=== PATIENT | male | born 1980 | race Hispanic/Latino ===

== ENCOUNTER 2025-06-12 06:05 | Observation (INO) | payer OTHER ==
[2025-06-08 14:56] LABS: IMMATURE GRANULOCYTE ABSOLUTE 0.04 K/uL (0-1); NUCLEATED RED BLOOD CELLS 0.0 % (0.0-0.19); PLATELET COUNT (AUTO) 320 K/uL (130-400); RED BLOOD CELL COUNT(AUTO) 5.54 MIL/uL (4.50-6.20); RED CELL DISTRIBUTION WIDTH 13.8 % (11.0-15.5); WHITE BLOOD COUNT (AUTO) 12.3 K/uL (4.8-10.8)
[2025-06-08 15:06] LABS: CREATININE 1.1 mg/dL (0.5-1.3); GLOMERULAR FILTR. RATE CALC 85.0 mL/min (>90); GLUCOSE,RANDOM 104.0 mg/dL (70-105); SODIUM SERUM 138.0 mmol/L (136-145); UREA NITROGEN, BLOOD 19.0 mg/dL (7-18)
[2025-06-08 15:08] LABS: INR 0.97 (0.85-1.15)
[2025-06-08 15:31] VITALS: BP 120/76; PULSE 97; RESP 18; TEMP 97.2
--- NOTE | 2025-06-08 15:53 | EKG ---
[facility] Test Date: 2025-06-08 Test Time: 14:40:36 Pat Name: CARMEN MCCOY Department: [facility] Room: Gender: Ethylbenzene Oxidizer: [id number] : 1980 Requested By: SANTOS MCCOY Order Number: [id number] Reading MD: Chantel Ramírez Measurements Intervals [place] Rate: 97 P: 49 [place]: 145 QRS: 34 QRSD: 79 T: 28 QT: 254 QTc: 324 Interpretive Statements Sinus rhythm Left atrial enlargement No previous ECG available for comparison Electronically Signed On 06-08-2025 16:17:45 CDT by Chantel Ramírez Please click the below link to view image of tracing.
--- NOTE | 2025-06-11 16:13 | NUR ---
RE: LABS REPORTED CBC RESULTS TO DR MCCOY/SREE, NO NEW ORDERS RECEIVED. (PATIENT ASYMPTOMATIC)
[2025-06-12] VITALS (27 sets, daily range): BP systolic 103–142; BP diastolic 59–93; PULSE 62–100; RESP 15–21; TEMP 97.4–98.1; O2SAT 0
[~2025-06-12] VITALS: Ht 175.3 cm; Wt 104.3 kg
[2025-06-12] MEDS: GABAPENTIN 300 MG CAPSULE ONE (07:01)
[2025-06-12] MEDS: FAMOTIDINE 20MG VIAL IV ONE (07:02)
[2025-06-12] MEDS ORDERED: LIDOCAINE PF 100MG/5ML (2%) SYRINGE 5ML ONE (07:19)
[2025-06-12] MEDS: LACTATED RINGERS 1000ML 1,000 ML IV ONE (07:20)
[2025-06-12] MEDS ORDERED: HYDR-4068 PO (07:35)
[2025-06-12] MEDS ORDERED: BUSP10TA3 PO (07:35)
[2025-06-12] MEDS ORDERED: GABA300C PO (07:35)
[2025-06-12] MEDS ORDERED: FAMO40TA7 PO (07:35)
[2025-06-12] MEDS ORDERED: ESCI20TA38 PO (07:35)
[2025-06-12] MEDS ORDERED: PRAZ5CAP2 PO (07:35)
[2025-06-12] MEDS ORDERED: BACL10TA PO (07:35)
[2025-06-12] MEDS ORDERED: OLAN10TA73 PO (07:35)
[2025-06-12] MEDS ORDERED: NEOSTIGMINE METHYLSULFATE 1MG/ML IV ONE (09:07)
[2025-06-12] MEDS ORDERED: GLYCOPYRROLATE 0.2 MG/ML 5 ML VIAL ONE (09:07)
[2025-06-12] MEDS ORDERED: PROCHLORPERAZINE 10MG/2ML INJ IV PRN (11:30)
[2025-06-12] MEDS: LACTATED RINGERS 1000ML 1,000 ML IV SCH (11:30)
[2025-06-12] MEDS ORDERED: HYDROcodone/APAP 5/325 1 TAB TABLET PO PRN (11:30)
[2025-06-12] MEDS: GABAPENTIN 300 MG CAPSULE PO SCH (14:00)
--- NOTE | 2025-06-12 14:10 | OP ---
Operative Note: DATE OF PROCEDURE: 06/12/25 SURGEON: SANTOS MCCOY MD LUNCH TRUCK DRIVER: [Please review operative record] ANESTHESIA: [General and regional] ANESTHESIOLOGIST/MAJOR GIFTS OFFICER: [Please review operative record] PREOPERATIVE DIAGNOSIS: [Diaphragmatic hernia, severe GERD] POSTOPERATIVE DIAGNOSIS: [Same] SYNOPSIS: [1 cm hiatal hernia containing incarcerated cardia, successfully reduced, primarily repair, reinforced with mesh, partial anterior fundoplication performed. Post repair EGD showing adequate reduction, no obstruction, no air leak, no active intraluminal bleeding] PROCEDURE: [1. Robotic assisted laparoscopic hiatal hernia repair with mesh reinforcement. 2. Anterior partial fundoplication (TUYET). 3. Intraoperative EGD] ESTIMATED BLOOD LOSS: [15 cc] INDICATIONS: [44-year-old male with chronic heartburn, who was found to have severe GERD and sliding hiatal hernia. Patient failed medical therapy, recommendation was given for surgical repair with hiatal hernia repair and fundoplication. Risks, benefits, alternatives were discussed with the patient. All questions were answered. Patient agreed to proceed with surgical procedure.] DESCRIPTION OF PROCEDURE: [After appropriate consent was obtained, the patient was taken to the operating room and placed in supine position on the operating table. SCDs were placed, preop antibiotics were given. Patient underwent induction of general anesthesia, endotracheal intubation. Patient was then prepped and draped in usual sterile fashion. Time-out was performed. Through a left subcostal incision, Veress needle was inserted into the peritoneal cavity. Insufflation was allowed to 12 mmHg. Through an 8 mm supraumbilical incision, 8 mm trocar and laparoscope were inserted into the p eritoneal cavity using Optiview. Rest of my trocars were all placed under direct visualization. Patient was positioned in a reverse Trendelenburg at 20. Through a 5 mm incision in the epigastrium, Eduardo liver retractor was placed in order to retract the left lobe of the liver anteriorly. The Bonnie robot was docked. Upon evaluation of the diaphragmatic hiatus, there was a small hiatal hernia about 1 cm. This contained incarcerated cardia. Our dissection began by incising the hepatogastric ligament in a avascular plane. This was followed cephalad towards the diaphragm using the vessel sealer. The hiatal orifice was dissected circumferentially using vessel sealer. Right crura was identified and a plane was developed between the right fish in the right wall of the esophagus. The dissection was accomplished with a combination of both vessel sealer and blunt dissection. On the posterior aspect of the esophageal wall, the left fish was identified. Dissection was followed towards the left fish. A few short gastrics were divided in order to fully mobilize the fundus of the stomach. Once the esophagus was fully mobilized, we then focused on the intra mediastinal dissection. Again this was accomplished mostly with blunt dissection with very little vessel sealer dissection. Once there was 3 cm of intra-abdominal esophagus, we then passed the endoscope through the mouth into the esophagus and into the stomach. With the endoscope in place, we then proceeded to perform our cruroplasty. This was achieved by approximating the left and the right crura on the posterior aspect of the esophagus using a two 0 V lock nonabsorbable suture in a running fashion. At the end of the crural plasty, only one instrument was able to pass through the diaphragmatic hiatus. An 8 cm Phasix round mesh with a horseshoe configuration was then used to reinforce the repair. The mesh was sutured in place using 3-0 absorbable V lock suture in a running fashion in a couple of simple interrupted 2-0 silks. At this time we focused on creating a partial anterior fundoplication (TUYET) . Of note the endoscope remained in the stomach during the whole time. The fundus was grasped and passed from left to right anterior to the esophagus, and sutured in place to the right fish and diaphragm using 2-0 silk suture in a running fashion. Endoscopy with insufflation revealed no air leak, no stenosis through the GE junction, appropriate reduction of the hiatal hernia in an intact wrap. At this time we completed our hiatal hernia repair. The Bonnie robot was then undocked. Final inspection revealed adequate hemostasis, no concerns for leakage. The abdomen was allowed to deflate. All instruments were removed. Counts were correct at the end of the case. Skin incisions were closed with 4-0 Monocryl suture. Dermabond was placed over the incisions. Patient tolerated the procedure well.] SANTOS MCCOY MD Jun 12, 2025 14:10
[2025-06-12] MEDS: HYDROcod/acetaMINOPHEN 7.5/325 MG 15 ML UDCUP PO PRN (15:42)
--- NOTE | 2025-06-12 17:45 | EKG ---
[facility] Test Date: 2025-06-12 Test Time: 17:41:55 Pat Name: CARMEN MCCOY Department: [facility] Room: 315 1 Gender: M Car Driver: jake : 1980 Requested By: KEV HERRON Order Number: [id number] Reading MD: Venu Mcguire Measurements Intervals [place] Rate: 72 P: 57 [place]: 150 QRS: 38 QRSD: 82 T: 63 QT: 340 QTc: 372 Interpretive Statements Normal sinus rhythm Nonspecific T wave abnormality Compared to ECG 06/08/2025 14:40:36 T-wave abnormality now present Atrial abnormality no longer present Electronically Signed On 06-12-2025 22:20:40 CDT by Venu Mcguire Please click the below link to view image of tracing.
[2025-06-12] MEDS: BACLOFEN 10 MG TABLET PO SCH (19:53)
[2025-06-12] MEDS: FAMOTIDINE 20MG VIAL IV SCH (19:53)
[2025-06-12] MEDS: ENOXAPARIN SODIUM 30 MG/0.3 ML SQ SCH (19:53)
[2025-06-12] MEDS: PRAZOSIN HCL 5 MG CAPSULE PO SCH (20:07)
[2025-06-13 03:03] VITALS: BP 126/74; PULSE 95; RESP 20; TEMP 98.2
[2025-06-13 08:00] VITALS: BP 115/65; PULSE 75; RESP 17; TEMP 97.4
--- NOTE | 2025-06-13 08:48 | NUR ---
DR. MCCOY INFORMED THAT THERE IS NO LABS. NONE ORDERED. GAVE THE OKAY TO GIVE LOVENOOX PER DVT PPX. TEACHING GIVEN TO SPACE OUT LIQUIDS TO PREVENT NAUSEA AND VOMITING. PT STATES TO FEEL OKAY ON FULL LIQUIDS. ACKNOWLEDGED. Addendum: 06/13/25 at 0951 by ROCIO REAL LVN LVN TO STAY ON LIQUIDS UNTIL SEES HIM IN CLINIC IN [address] ALBARRAN VIA TELEPHONE.
[2025-06-13] MEDS ORDERED: (Escitalopram Oxalate 20 MG) PO SCH ×2 (09:00→20:00)
[2025-06-13] MEDS: GABAPENTIN 300 MG CAPSULE PO SCH (09:30)
[2025-06-13] MEDS: BACLOFEN 10 MG TABLET PO SCH (09:30)
--- NOTE | 2025-06-13 11:24 | NUR ---
DCP: HOME Pt currently lives at home with her sps Carlotta Duenas [phone]. Pt does have a cane and shower chair that he uses at home. Pt does not have home health or provider services. Pt is able to complete ADLs independently. PCP is Dr. Harrington and uses the [facility] for any RX needs. At [place] pt will want to go home and family can assist with transportation. Addendum: 06/13/25 at 1126 by CLAUDIA LOZANO SS Amended: Links added.
[2025-06-13 11:57] VITALS: O2SAT 96
--- NOTE | 2025-06-13 11:59 | DS ---
Discharge Summary HOSPITAL COURSE SUMMARY: [] NECKTIE STITCHER(S): [] PROCEDURES: [] PROBLEM(S): [] DISCHARGE INSTRUCTIONS: [] Home Meds Reported Medications Famotidine (Famotidine) 40 Mg Tablet, 40 MG PO HS, TAB 06/12/25 Olanzapine (Olanzapine) 10 Mg Tablet, 10 MG PO HS, TAB 06/12/25 Escitalopram Oxalate (Escitalopram Oxalate) 20 Mg Tablet, 20 MG PO DAILY, TAB 06/12/25 Baclofen (Baclofen) 10 Mg Tablet, 10 MG PO BID, TAB 06/12/25 Hydrocodone/Acetaminophen (Hydrocodon-Acetaminophn 10-325) 10 Mg-325 Mg Tablet, 1 TAB PO BID for 30 Days, #90 TAB 0 Refills 06/12/25 Gabapentin (Neurontin) 300 Mg Capsule, 300 MG PO TID, CAP 06/12/25 Buspirone HCl (Buspirone HCl) 10 Mg Tablet, 2 TAB PO BID for 30 Days, #60 TAB 0 Refills 06/12/25 Prazosin HCl (Prazosin HCl) 5 Mg Capsule, 3 CAP PO HS for 30 Days, #30 CAP 0 Refills 06/12/25 LAURIE PITTMAN SOLAR INSTALLATION TECHNICIAN Jun 13, 2025 11:58
[2025-06-13 12:00] VITALS: BP 122/78; PULSE 76; RESP 19; TEMP 97.8
[2025-06-13] MEDS: SIMETHICONE 80 MG TAB.CHEW PO STA (12:33)
--- NOTE | 2025-06-13 12:35 | NUR ---
DISCHARGE DC'D IV. NO COMPLICATIONS. AWARE TO FOLLOW UP WITH DR. SWEENEY. PT STATES TO ALREADY HAVE APPOINTMENT SCHEDULED. ANSWERED ALL QUESTIONS. INCISIONS INTACT. NO LEAKING.
--- NOTE | 2025-06-13 15:08 | NUR ---
Pt d/c before RD could visit Addendum: 06/13/25 at [address] Amended: Links added.
[2025-06-13] MEDS ORDERED: PRAZOSIN HCL 5 MG CAPSULE PO SCH (20:00)
== END 2025-06-13 13:07 | disposition home or self-care (01) ==
LOC: DAH 06:05 → DAHIP 06:06 → INTOOBSV 06:06 → DAH 06:06 → 3CH 13:30
PROVIDERS: ADMIT Surgery; ATTEND Surgery
DX: K44.0 Diaphragmatic hernia with obstruction, without gangrene (principal); K21.00 Gastro-esophageal reflux disease with esophagitis, without bleeding; F41.9 Anxiety disorder, unspecified; F32.A Depression, unspecified; M19.90 Unspecified osteoarthritis, unspecified site; Z79.899 Other long term (current) drug therapy; Z86.2 Personal history of diseases of the blood and blood-forming organs and certain disorders involving the immune mechanism
CPT/HCPCS: 80048; 85025; 85610; 85730; 86850 ×2; 86900 ×2; 86901 ×2; 36415 ×2; 93005 ×2; 43282; 96374; 96372 ×2; 96375 ×2; 97161; 97116; 97530 ×2; 96376; A6260; G0378 ×26; A4663; J7120 ×3; A4215 ×2; J0690 ×3; J3490 ×9; J3010 ×3; J1100; J0665 ×2; J2003; J1650 ×2; J2704; J2405 ×2; J2710; J1885 ×4; A4649; C1781; A4930 ×3; A4223 ×2; A4222; A4221; A4216; A4600; A4606; 43235